=== PATIENT | female | born 1970 | race Hispanic/Latino ===

== ENCOUNTER 2022-06-15 15:55 | Emergency (ER) | payer OTHER ==
--- OUTSIDE RECORDS SUMMARY | 2022-06-15 16:00 | XMS REPORT | Continuity of Care Document ---
:1970 Author Organization [facility] t Address [address] [place] [address] Dr. Singh [address] [place] [id number] Care Team Providers Name Role Phone Unavailable Unavailable Unavailable Problems This patient has no known problems. Allergies, Adverse Reactions, Alerts This patient has no known allergies or adverse reactions. Medications This patient has no known medications. Procedures This patient has no known procedures. Results This patient has no known results.
--- NOTE | 2022-06-15 17:34 | RAD REPORT ---
EXAM DESCRIPTION: RAD - Ankle Left 3 View - 06/15/2022 5:28 pm CLINICAL HISTORY: PAIN COMPARISON: No comparisons FINDINGS/IMPRESSION: Fracture of the distal fibula below the tibiofibular syndesmosis. This is nondi splaced. Calcaneal spurring. Soft tissue swelling is present.
--- NOTE | 2022-06-15 18:03 | EDPHYS ---
Physician Documentation [facility] Name: Zo Valdez Age: 52 yrs Sex: Female : 1970 Arrival Date: 06/15/2022 Time: 16:00 Bed DIS2 Private MD: ED Physician Tono Dick HPI: 06/15 17:55 This 52 yrs old Female presents to ER via Wheelchair with complaints of Ankle jl9 Injury. Patient rolled her left ankle. . 17:55 Onset: The symptoms/episode began/occurred just prior to arrival. Severity of symptoms: jl9 in the emergency department the symptoms a " 5" out of "10". 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 - Social history:: Smoking status: Patient denies any tobacco usage or history of. ROS: 17:56 Constitutional: Negative for fever, chills, and weight loss, Eyes: Negative for injury, jl9 pain, redness, and discharge, ENT: Negative for injury, pain, and discharge, Neck: Negative for injury, pain, and swelling, Cardiovascular: Negative for chest pain, palpitations, and edema, Respiratory: Negative for shortness of breath, cough, wheezing, and pleuritic chest pain, Abdomen/GI: Negative for abdominal pain, nausea, vomiting, diarrhea, and constipation, Back: Negative for injury and pain, : Negative for injury, bleeding, discharge, and swelling. 17:56 Skin: Negative for injury, rash, and discoloration, Neuro: Negative for headache, weakness, numbness, tingling, and seizure, Psych: Negative for depression, anxiety, suicide ideation, homicidal ideation, and hallucinations, Allergy/Immunology: Negative for hives, rash, and allergies, Endocrine: Negative for neck swelling, polydipsia, polyuria, polyphagia, and marked weight changes, Hematologic/Lymphatic: Negative for swollen nodes, abnormal bleeding, and unusual bruising. 17:56 MS/extremity: Positive for pain, swelling. Exam: 17:56 Constitutional: This is a well developed, well nourished patient who is awake, alert, jl9 and in no acute distress. Head/Face: Normocephalic, atraumatic. Eyes: Pupils equal round and reactive to light, extra-ocular motions intact. Lids and lashes normal. Conjunctiva and sclera are non-icteric and not injected. Cornea within normal limits. Periorbital areas with no swelling, redness, or edema. ENT: Mucous membranes moist. Neck: Trachea midline, no thyromegaly or masses palpated, and no cervical lymphadenopathy. Supple, full range of motion without nuchal rigidity, or vertebral point tenderness. No Meningismus. Chest/axilla: Normal chest wall appearance and motion. Nontender with no deformity. No lesions are appreciated. Cardiovascular: Regular rate and rhythm with a normal S1 and S2. No gallops, murmurs, or rubs. Normal PMI, no JVD. No pulse deficits. Respiratory: Lungs have equal breath sounds bilaterally, clear to auscultation and percussion. No rales, rhonchi or wheezes noted. No increased work of breathing, no retractions or nasal flaring. Abdomen/GI: Soft, non-tender, with normal bowel sounds. No distension or tympany. No guarding or rebound. No evidence of tenderness throughout. Back: No spinal tenderness. No costovertebral tenderness. Full range of motion. Pelvic Exam: Normal external genitalia. Speculum exam with closed cervical os, no discharge or bleeding noted. Bimanual exam with normal adnexa, no adnexal or cervical motion tenderness. Normal uterus. Skin: Warm, dry with normal turgor. Normal color with no rashes, no lesions, and no evidence of cellulitis. 17:56 Neuro: Awake and alert, GCS 15, oriented to person, place, time, and situation. Cranial nerves II-XII grossly intact. Motor strength 5/5 in all extremities. Sensory grossly intact. Cerebellar exam normal. Normal gait. Psych: Awake, alert, with orientation to person, place and time. Behavior, mood, and affect are within normal limits. 17:56 Musculoskeletal/extremity: Extremities: grossly normal except: pain, swelling, tenderness. Vital Signs: 16:52 BP 140 / 69; Pulse 98; Resp 16; Temp 97.7; Pulse Ox 97% on R/A; Weight 81.65 kg; Height vg1 5 ft. 2 in. (157.48 cm); Pain 8; 16:52 Body Mass Index 32.92 (81.65 kg, 157.48 cm) vg1 Procedures: 17:56 Splinting: Splint applied to left leg and left ankle using Orthoglass splint, applied jl9 by tech. post reduction film - Examined by me, post splint application: neurovascular intact, 2+ distal pulses palpable, brisk capillary refill noted, Patient tolerated well. MDM: 16:58 Patient medically screened. kat 17:57 Differential diagnosis: abrasion, fracture, sprain. Data reviewed: vital signs, nurses jl9 notes, radiologic studies. Counseling: I had a detailed discussion with the patient and/or guardian regarding: the historical points, exam findings, and any diagnostic results supporting the discharge/admit diagnosis, radiology results, the need for outpatient follow up, a orthopedic surgeon, to return to the emergency department if symptoms worsen or persist or if there are any questions or concerns that arise at home. 06/15 16:55 Order name: XRAY Ankle LEFT 3 view; Complete Time: 17:38 jl9 06/15 17:39 Order name: Posterior Leg Splint; Complete Time: 18:11 jl9 06/15 18:42 Order name: Crutches; Complete Time: 18:42 ss Administered Medications: 18:29 Drug: [place] (HYDROcodone-acetaminophen) 10 mg-325 mg 1 tabs Route: PO; ss 18:29 Follow up: Response: Medication administered at discharge. ss Disposition Summary: 06/15/22 18:03 Discharge Ordered Location: Home jl9 Condition: Stable jl9 Diagnosis - Nondisplaced fracture of lateral malleolus of left fibula jl9 Followup: jl9 - With: Private Physician - When: 1 - 2 days - Reason: Recheck today's complaints, Continuance of care, Re-evaluation by your physician Discharge Instructions: - Discharge Summary Sheet jl9 - Nondisplaced Fibular Ankle Fracture Treated With Immobilization jl9 Forms: - Medication Reconciliation Form jl9 - Thank You Letter jl9 - Antibiotic Education jl9 - Prescription Opioid Use jl9 Prescriptions: - Tramadol 50 mg Oral Tablet - take 1 tablet by ORAL route every 8 hours as needed; 12 tablet; Refills: 0, jl9 Product Selection Permitted Addendum: 06/17/2022 13:38 Co-signature as Attending Physician, Tono Dick MD I agree with the assessment and c araujo plan of care. Signatures: Dispatcher [employer] Tono Spangler MD MD cha Smirch, Shelby RN RN ss Sulema Osborne RN RN vg1 Derick Cordon jl9
--- NOTE | 2022-06-15 18:03 | ER ---
Nurse's Notes [facility] Name: Zo Valdez Age: 52 yrs Sex: Female : 1970 Arrival Date: 06/15/2022 Time: 16:00 Bed DIS2 Private MD: Diagnosis: Nondisplaced fracture of lateral malleolus of left fibula Presentation: 06/15 16:52 Chief complaint: Patient states: Tripped over shoe lace and rolled Left ankle and heard vg1 a 'crack' Left ankle appears to be swollen and bruised. Coronavirus screen: Vaccine status: Patient reports receiving the 2nd dose of the covid vaccine. Client denies travel out of the [place] in the last 14 days. Ebola Screen: Patient negative for fever greater than or equal to 101.5 degrees Fahrenheit, and additional compatible Ebola Virus Disease symptoms. Initial Sepsis Screen: Does the patient meet any 2 criteria? No. Patient's initial sepsis screen is negative. Does the patient have a suspected source of infection? No. Patient's initial sepsis screen is negative. Risk Assessment: Do you want to hurt yourself or someone else?. Onset of symptoms was June 15, 2022. 16:52 Method Of Arrival: Wheelchair vg1 16:52 Acuity: PERRY 4 vg1 Triage Assessment: 16:54 General: Appears uncomfortable, Behavior is cooperative. Pain: Complains of pain in vg1 left lateral malleolus Pain currently is 8 out of 10 on a pain scale. Derm: Bruising that is on left lateral malleolus. Musculoskeletal: Capillary refill is > 3 seconds, in left toes. Range of motion: limited in left ankle Swelling present in left lateral malleolus. 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 - Social history:: Smoking status: Patient denies any tobacco usage or history of. Screenin:39 Abuse screen: Denies threats or abuse. Denies injuries from another. Nutritional ss screening: No deficits noted. Tuberculosis screening: Never had TB. Fall Risk None identified. Assessment: 18:39 General: Appears in no apparent distress. comfortable. Pain: Complains of pain in left ss ankle Pain currently is 8 out of 10 on a pain scale. Quality of pain is described as aching, tender. Neuro: Level of Consciousness is awake, alert, obeys commands. Respiratory: Airway is patent Respiratory effort is even, unlabored, Respiratory pattern is regular, symmetrical. Derm: Skin is intact, is healthy with good turgor, Skin is pink, warm \T\ dry. normal. Vital Signs: 16:52 BP 140 / 69; Pulse 98; Resp 16; Temp 97.7; Pulse Ox 97% on R/A; Weight 81.65 kg; Height vg1 5 ft. 2 in. (157.48 cm); Pain 8/10; 16:52 Body Mass Index 32.92 (81.65 kg, 157.48 cm) vg1 ED Course: 16:00 Patient arrived in ED. mr 16:45 Derick Cordon is PHCP. jl9 16:45 Tono Dick MD is Attending Physician. jl9 16:54 Triage completed. vg1 16:54 Arm band placed on. vg1 17:29 XRAY Ankle LEFT 3 view In Process Unspecified. EDMS 18:11 Orthoglass splint: Posterior short lleg splint applied on left leg. 18:39 Hilda Quevedo, RN is Primary Nurse. ss 18:39 Patient has correct armband on for positive identification. ss 18:39 No provider procedures requiring assistance completed. Patient did not have IV access ss during this emergency room visit. Crutch training done. Administered Medications: 18:29 Drug: [place] (HYDROcodone-acetaminophen) 10 mg-325 mg 1 tabs Route: PO; ss 18:29 Follow up: Response: Medication administered at discharge. ss Medication: 18:39 VIS not applicable for this client. Outcome: 18:03 Discharge ordered by . jl9 18:43 Discharged to home ambulatory. 18:43 Condition: good 18:43 Discharge instructions given to patient, Instructed on discharge instructions, follow up and referral plans. medication usage, Demonstrated understanding of instructions, follow-up care, medications, Prescriptions given X 1. 18:45 Patient left the ED. ss Signatures: Dispatcher [employer] [facility] Kiara Oviedo Hilda Her, RN RN ss Sulema Osborne, RN RN vg1 Christian, Ela Cordon, Derick [facility]
[2022-06-15] MEDS ORDERED: HYDROCODONE/APAP 10/325 TAB ONE (18:26)
[2022-06-15 19:23] VITALS: BP 140/69; TEMP 97.7; O2SAT 97
== END 2022-06-15 18:45 | disposition home or self-care (01) ==
LOC: ER 15:55
PROC: 2W3RX1Z Immobilization of Left Lower Leg using Splint (ICD-10-PCS; principal; 2022-06-15)
DX: S82.65XA Nondisplaced fracture of lateral malleolus of left fibula, initial encounter for closed fracture (principal)
CPT/HCPCS: 99284